=== PATIENT | male | born 1940 | race Two or more races ===

== ENCOUNTER 2022-12-09 07:01 | Inpatient (IN) | payer OTHER ==
[2022-12-09] MEDS ORDERED: ACETAMINOPHEN 1000 MG/100 ML BAG IVPB ONE ×2 (08:02→15:39)
[2022-12-09 08:09] VITALS: BMI 21.6
[2022-12-09 11:26] LABS: BASO % 0.4 % (0-2.0); EOS % 0.4 % (0-4.5); HEMATOCRIT 27.1 % (35.4-49); HEMOGLOBIN 8.8 GM/dL (11.7-16.9); LYMPH % 6.4 % (8-40); MCH 28.8 pg (25.7-33.7); MCHC 32.3 g/dl (32.0-35.9); MEAN PLT VOLUME 11.3 fl (7.5-11.1); MONO % 10.7 % (3.8-10.2); NEUT % 82.1 % (42.8-82.8); PLATELET COUNT 119 10^3/uL (134-434); RBC 3.04 M/mm3 (4.00-5.60); RDW 17.1 % (11.9-15.9); WHITE BLOOD COUNT 4.4 K/mm3 (4.0-10.0)
[2022-12-09 11:29] LABS: CALCIUM 9.2 mg/dL (8.5-10.1)
[2022-12-09 11:30] LABS: ALBUMIN 3.5 g/dl (3.4-5.0); BLOOD UREA NITROGEN 97.3 mg/dL (7-18)
[2022-12-09 11:33] LABS: CREATININE 3.3 mg/dL (0.55-1.3)
[2022-12-09 11:34] LABS: BILIRUBIN,TOTAL 0.7 mg/dL (0.2-1)
[2022-12-09 11:47] LABS: INR 1.24 (0.83-1.09); PROTHROMBIN TIME (PATIENT) 14.3 SEC (9.7-13.0)
[2022-12-09 11:50] LABS: ACTIVATED PTT 33.4 SECONDS (25.2-36.5)
[2022-12-09] MEDS: SEVELAMER CARBONATE 800 MG TAB (FP) PO SCH (17:18)
[2022-12-09] MEDS: oxyCODONE HCL 5 MG TABLET PO PRN (17:19)
[2022-12-09] MEDS: INSULIN SLIDING SCALE (NOVOLOG) 1 VIAL SQ SCH ×2 (17:27→21:18)
[2022-12-09] MEDS ORDERED: INSULIN (NOVOLOG) ASPART 100 UNITS/ML 10ML VIAL ONE (20:11)
[2022-12-09] MEDS: ISOSORBIDE DINITRATE 10 MG TABLET PO SCH (20:13)
[2022-12-09 20:21] LABS: INR 1.24 (0.83-1.09); PROTHROMBIN TIME (PATIENT) 14.4 SEC (9.7-13.0)
[2022-12-09 20:24] LABS: ACTIVATED PTT 34.8 SECONDS (25.2-36.5)
[2022-12-09] MEDS: ATORVASTATIN CA 10 MG TABLET (FP) PO SCH (21:15)
[2022-12-09] MEDS: METOPROLOL TARTRATE 25 MG TABLET (FP) PO SCH (21:16)
[2022-12-09] MEDS: INSULIN (LEVEMIR) 100 UNITS/ML UNITS SQ SCH (21:18)
[2022-12-10] MEDS: INSULIN SLIDING SCALE (NOVOLOG) 1 VIAL SQ SCH ×4 (06:10→22:18)
[2022-12-10] MEDS: INSULIN (LEVEMIR) 100 UNITS/ML UNITS SQ SCH (06:10)
[2022-12-10] MEDS ORDERED: DEXTROSE 50%-WATER 25 GM/50 ML DISP.SYRIN IVPUSH ONE (06:16)
[2022-12-10] MEDS ORDERED: DEXTROSE 50%-WATER 25 GM/50 ML DISP.SYRIN ONE (06:20)
[2022-12-10] MEDS: SEVELAMER CARBONATE 800 MG TAB (FP) PO SCH ×3 (09:39→16:49)
[2022-12-10] MEDS: TAMSULOSIN HCL 0.4 MG CAP PO SCH (09:39)
[2022-12-10 09:40] LABS: BASO % 0.2 % (0-2.0); EOS % 0.4 % (0-4.5); HEMATOCRIT 23.7 % (35.4-49); HEMOGLOBIN 7.8 GM/dL (11.7-16.9); LYMPH % 9.1 % (8-40); MCH 28.5 pg (25.7-33.7); MEAN CELL VOLUME 86.6 fl (80-96); MEAN PLT VOLUME 10.3 fl (7.5-11.1); MONO % 13.2 % (3.8-10.2); NEUT % 77.1 % (42.8-82.8); PLATELET COUNT 92 10^3/uL (134-434); RBC 2.74 M/mm3 (4.00-5.60); RDW 16.5 % (11.9-15.9); WHITE BLOOD COUNT 3.8 K/mm3 (4.0-10.0)
[2022-12-10] MEDS: METOPROLOL TARTRATE 25 MG TABLET (FP) PO SCH ×2 (09:42→21:56)
[2022-12-10] MEDS: ISOSORBIDE DINITRATE 10 MG TABLET PO SCH ×2 (09:42→17:49)
[2022-12-10] MEDS: PANTOPRAZOLE 40 MG TABLET PO SCH (09:47)
[2022-12-10] MEDS: TORSEMIDE 20 MG TABLET (FP) PO SCH (09:59)
[2022-12-10 10:12] LABS: ALBUMIN 3.2 g/dl (3.4-5.0); BLOOD UREA NITROGEN 91.7 mg/dL (7-18)
[2022-12-10 10:13] LABS: CALCIUM 9.1 mg/dL (8.5-10.1); MAGNESIUM 2.4 mg/dL (1.8-2.4)
[2022-12-10 10:14] LABS: BILIRUBIN,TOTAL 0.7 mg/dL (0.2-1); TOT PROT 6.5 g/dl (6.4-8.2)
[2022-12-10 10:16] LABS: PHOSPHOROUS 4.4 mg/dL (2.5-4.9)
[2022-12-10] MEDS: oxyCODONE HCL 5 MG TABLET PO PRN (10:18)
[2022-12-10] MEDS ORDERED: ENOXAPARIN NA (PORCINE) 40 MG/0.4 ML DISP.SYRIN SQ SCH (12:45)
[2022-12-10] MEDS: ACETAMINOPHEN 1000 MG/100 ML BAG IVPB SCH ×2 (13:11→21:52)
[2022-12-10] MEDS: ASPIRIN COATED 81 MG TABLET.EC PO SCH (14:00)
[2022-12-10] MEDS ORDERED: INSULIN (NOVOLOG) ASPART 100 UNITS/ML 10ML VIAL ONE ×2 (16:49→22:17)
[2022-12-10] MEDS: HEPARIN NA (PORCINE) 5,000 UNITS/ML 1ML VIAL SQ SCH (21:53)
[2022-12-10] MEDS: ATORVASTATIN CA 10 MG TABLET (FP) PO SCH (21:54)
[2022-12-11] MEDS: ACETAMINOPHEN 1000 MG/100 ML BAG IVPB SCH ×2 (04:49→05:41)
[2022-12-11] MEDS: INSULIN (LEVEMIR) 100 UNITS/ML UNITS SQ SCH (06:40)
[2022-12-11] MEDS: INSULIN SLIDING SCALE (NOVOLOG) 1 VIAL SQ SCH ×4 (06:43→23:20)
[2022-12-11] MEDS: ISOSORBIDE DINITRATE 10 MG TABLET PO SCH ×3 (09:40→18:12)
[2022-12-11] MEDS: PANTOPRAZOLE 40 MG TABLET PO SCH (09:41)
[2022-12-11] MEDS: TAMSULOSIN HCL 0.4 MG CAP PO SCH (09:41)
[2022-12-11] MEDS: TORSEMIDE 20 MG TABLET (FP) PO SCH (09:41)
[2022-12-11] MEDS: SEVELAMER CARBONATE 800 MG TAB (FP) PO SCH ×3 (09:41→18:12)
[2022-12-11] MEDS: ASPIRIN COATED 81 MG TABLET.EC PO SCH (09:41)
[2022-12-11] MEDS: HEPARIN NA (PORCINE) 5,000 UNITS/ML 1ML VIAL SQ SCH ×2 (09:41→23:20)
[2022-12-11] MEDS: METOPROLOL TARTRATE 25 MG TABLET (FP) PO SCH ×3 (09:41→23:24)
[2022-12-11 13:01] LABS: HEMATOCRIT 26.2 % (35.4-49); HEMOGLOBIN 8.4 GM/dL (11.7-16.9); MCH 27.8 pg (25.7-33.7); MCHC 32.2 g/dl (32.0-35.9); MEAN CELL VOLUME 86.4 fl (80-96); MEAN PLT VOLUME 10.9 fl (7.5-11.1); PLATELET COUNT 77 10^3/uL (134-434); RBC 3.04 M/mm3 (4.00-5.60); RDW 16.3 % (11.9-15.9); WHITE BLOOD COUNT 3.4 K/mm3 (4.0-10.0)
[2022-12-11 13:15] LABS: CALCIUM 8.6 mg/dL (8.5-10.1)
[2022-12-11 13:16] LABS: ALBUMIN 2.8 g/dl (3.4-5.0); BLOOD UREA NITROGEN 88.6 mg/dL (7-18); MAGNESIUM 2.3 mg/dL (1.8-2.4)
[2022-12-11 13:19] LABS: CREATININE 3.2 mg/dL (0.55-1.3); PHOSPHOROUS 4.3 mg/dL (2.5-4.9)
[2022-12-11 13:20] LABS: BILIRUBIN,TOTAL 0.8 mg/dL (0.2-1)
[2022-12-11] MEDS ORDERED: INSULIN (NOVOLOG) ASPART 100 UNITS/ML 10ML VIAL ONE (22:37)
[2022-12-11] MEDS: ATORVASTATIN CA 10 MG TABLET (FP) PO SCH (23:18)
[2022-12-11] MEDS: oxyCODONE HCL 5 MG TABLET PO PRN (23:22)
[2022-12-12] MEDS: INSULIN (LEVEMIR) 100 UNITS/ML UNITS SQ SCH (06:24)
[2022-12-12] MEDS: INSULIN SLIDING SCALE (NOVOLOG) 1 VIAL SQ SCH ×4 (06:25→23:15)
[2022-12-12] MEDS: SEVELAMER CARBONATE 800 MG TAB (FP) PO SCH ×4 (09:01→18:00)
[2022-12-12] MEDS: TAMSULOSIN HCL 0.4 MG CAP PO SCH (09:01)
[2022-12-12] MEDS: ASPIRIN COATED 81 MG TABLET.EC PO SCH (09:01)
[2022-12-12] MEDS: PANTOPRAZOLE 40 MG TABLET PO SCH (09:02)
[2022-12-12] MEDS: ISOSORBIDE DINITRATE 10 MG TABLET PO SCH ×2 (09:03→17:44)
[2022-12-12] MEDS: METOPROLOL TARTRATE 25 MG TABLET (FP) PO SCH ×2 (09:03→23:06)
[2022-12-12] MEDS: TORSEMIDE 20 MG TABLET (FP) PO SCH (09:04)
[2022-12-12] MEDS: oxyCODONE HCL 5 MG TABLET PO PRN (09:06)
[2022-12-12 09:11] LABS: HEMATOCRIT 23.7 % (35.4-49); HEMOGLOBIN 7.8 GM/dL (11.7-16.9); MCH 28.2 pg (25.7-33.7); MCHC 32.7 g/dl (32.0-35.9); MEAN CELL VOLUME 86.2 fl (80-96); MEAN PLT VOLUME 10.6 fl (7.5-11.1); PLATELET COUNT 79 10^3/uL (134-434); RBC 2.75 M/mm3 (4.00-5.60); RDW 16.8 % (11.9-15.9); WHITE BLOOD COUNT 4.3 K/mm3 (4.0-10.0)
[2022-12-12 09:44] LABS: CALCIUM 8.5 mg/dL (8.5-10.1)
[2022-12-12 09:45] LABS: ALBUMIN 2.6 g/dl (3.4-5.0); MAGNESIUM 2.3 mg/dL (1.8-2.4)
[2022-12-12 09:48] LABS: CREATININE 3.1 mg/dL (0.55-1.3); PHOSPHOROUS 3.8 mg/dL (2.5-4.9)
[2022-12-12 09:49] LABS: BILIRUBIN,TOTAL 1.3 mg/dL (0.2-1); TOT PROT 5.9 g/dl (6.4-8.2)
[2022-12-12] MEDS ORDERED: PROPOFOL 40 ML ONE (12:13)
[2022-12-12] MEDS ORDERED: MIDAZOLAM HCL 2 MG/2 ML SINGLE DOSE VIAL ONE (12:13)
[2022-12-12] MEDS ORDERED: ceFAZolin SODIUM 1 GM VIAL ONE ×2 (12:13→12:18)
[2022-12-12] MEDS ORDERED: SODIUM CHLORIDE 0.9% P/F 10 ML VIAL IJ ONE (12:13)
[2022-12-12] MEDS ORDERED: BUPIVACAINE HCL/PF 0.5% (5MG/ML) 10 ML VIAL ONE (12:39)
[2022-12-12] MEDS ORDERED: ceFAZolin SODIUM 1 GM VIAL IVPB ONE (12:57)
[2022-12-12] MEDS ORDERED: LACTATED RINGERS SOLUTION 1,000 ML IV SCH ×2 (14:45→15:24)
[2022-12-12] MEDS ORDERED: ACETAMINOPHEN 1000 MG/100 ML BAG IVPB PRN (17:07)
[2022-12-12] MEDS: LACTATED RINGERS SOLUTION 1,000 ML IV SCH (17:46)
[2022-12-12] MEDS ORDERED: CEFAZOLIN SODIUM 2 GM in DEXTROSE 5%-WATER 100 ML IVPB SCH (21:00)
[2022-12-12] MEDS: CEFAZOLIN SODIUM 2 GM in DEXTROSE 5%-WATER 100 ML IVPB SCH (23:05)
[2022-12-12] MEDS: ATORVASTATIN CA 10 MG TABLET (FP) PO SCH (23:06)
[2022-12-13] MEDS: CEFAZOLIN SODIUM 2 GM in DEXTROSE 5%-WATER 100 ML IVPB SCH (04:40)
[2022-12-13] MEDS: INSULIN (LEVEMIR) 100 UNITS/ML UNITS SQ SCH (06:30)
[2022-12-13] MEDS: INSULIN SLIDING SCALE (NOVOLOG) 1 VIAL SQ SCH ×4 (06:35→21:46)
[2022-12-13] MEDS ORDERED: ASPIRIN 325 MG TABLET PO SCH ×2 (08:00)
[2022-12-13] MEDS: TAMSULOSIN HCL 0.4 MG CAP PO SCH (08:36)
[2022-12-13] MEDS: SEVELAMER CARBONATE 800 MG TAB (FP) PO SCH ×3 (08:36→17:04)
[2022-12-13] MEDS ORDERED: BISACODYL 10 MG SUPP.RECT PR PRN (09:37)
[2022-12-13] MEDS: METOPROLOL TARTRATE 25 MG TABLET (FP) PO SCH ×2 (09:52→21:46)
[2022-12-13] MEDS: TORSEMIDE 20 MG TABLET (FP) PO SCH (09:52)
[2022-12-13] MEDS: ISOSORBIDE DINITRATE 10 MG TABLET PO SCH ×2 (09:52→18:42)
[2022-12-13 11:04] LABS: BASO % 0.1 % (0-2.0); HEMATOCRIT 15.2 % (35.4-49); MCH 29.8 pg (25.7-33.7); MCHC 34.8 g/dl (32.0-35.9); MEAN CELL VOLUME 85.7 fl (80-96); MEAN PLT VOLUME 10.4 fl (7.5-11.1); MONO % 13.4 % (3.8-10.2); NEUT % 82.5 % (42.8-82.8); PLATELET COUNT 86 10^3/uL (134-434); RBC 1.77 M/mm3 (4.00-5.60); RDW 16.2 % (11.9-15.9); WHITE BLOOD COUNT 6.7 K/mm3 (4.0-10.0)
[2022-12-13 11:15] LABS: HEMOGLOBIN 5.3 GM/dL (11.7-16.9)
[2022-12-13 11:35] LABS: ALBUMIN 2.2 g/dl (3.4-5.0); BLOOD UREA NITROGEN 95.4 mg/dL (7-18); CALCIUM 8.3 mg/dL (8.5-10.1)
[2022-12-13 11:36] LABS: MAGNESIUM 2.1 mg/dL (1.8-2.4)
[2022-12-13 11:38] LABS: CREATININE 3.5 mg/dL (0.55-1.3)
[2022-12-13] MEDS ORDERED: INSULIN (NOVOLOG) ASPART 100 UNITS/ML 10ML VIAL ONE (11:38)
[2022-12-13 11:40] LABS: BILIRUBIN,TOTAL 0.6 mg/dL (0.2-1); TOT PROT 4.9 g/dl (6.4-8.2)
[2022-12-13] MEDS: PANTOPRAZOLE 40 MG TABLET PO SCH (11:53)
[2022-12-13 12:44] LABS: INR 1.4 (0.83-1.09); PROTHROMBIN TIME (PATIENT) 16.2 SEC (9.7-13.0)
[2022-12-13] MEDS: LACTATED RINGERS SOLUTION 1,000 ML IV SCH (17:04)
[2022-12-13] MEDS: ATORVASTATIN CA 10 MG TABLET (FP) PO SCH (21:46)
[2022-12-14 03:43] LABS: BASO % 0.1 % (0-2.0); HEMATOCRIT 21.6 % (35.4-49); HEMOGLOBIN 7.5 GM/dL (11.7-16.9); LYMPH % 7.8 % (8-40); MCH 29.2 pg (25.7-33.7); MCHC 34.6 g/dl (32.0-35.9); MEAN CELL VOLUME 84.4 fl (80-96); MEAN PLT VOLUME 9.6 fl (7.5-11.1); MONO % 15.6 % (3.8-10.2); NEUT % 76.5 % (42.8-82.8); PLATELET COUNT 63 10^3/uL (134-434); RBC 2.56 M/mm3 (4.00-5.60); RDW 15.7 % (11.9-15.9); WHITE BLOOD COUNT 4.8 K/mm3 (4.0-10.0)
[2022-12-14] MEDS: INSULIN (LEVEMIR) 100 UNITS/ML UNITS SQ SCH (06:13)
[2022-12-14] MEDS: INSULIN SLIDING SCALE (NOVOLOG) 1 VIAL SQ SCH ×4 (06:14→22:34)
[2022-12-14] MEDS: SEVELAMER CARBONATE 800 MG TAB (FP) PO SCH ×3 (08:36→17:09)
[2022-12-14] MEDS: TAMSULOSIN HCL 0.4 MG CAP PO SCH (08:36)
[2022-12-14 08:40] LABS: BASO % 0.1 % (0-2.0); HEMATOCRIT 21.2 % (35.4-49); HEMOGLOBIN 7.3 GM/dL (11.7-16.9); LYMPH % 7.5 % (8-40); MCH 28.7 pg (25.7-33.7); MCHC 34.5 g/dl (32.0-35.9); MEAN CELL VOLUME 83.1 fl (80-96); MEAN PLT VOLUME 10.1 fl (7.5-11.1); MONO % 16.6 % (3.8-10.2); NEUT % 75.8 % (42.8-82.8); PLATELET COUNT 66 10^3/uL (134-434); RBC 2.55 M/mm3 (4.00-5.60); RDW 16.1 % (11.9-15.9); WHITE BLOOD COUNT 4.6 K/mm3 (4.0-10.0)
[2022-12-14 08:52] LABS: CHLORIDE 103 mmol/L (98-107); SODIUM 134 mmol/L (136-145)
[2022-12-14 08:57] LABS: ALBUMIN 2.2 g/dl (3.4-5.0); ANION GAP 8 MMOL/L (8-16); BLOOD UREA NITROGEN 98.4 mg/dL (7-18); CALCIUM 8.5 mg/dL (8.5-10.1); CO2 23 mmol/L (21-32); GLUCOSE,RANDOM 181 mg/dL (74-106); MAGNESIUM 2.3 mg/dL (1.8-2.4)
[2022-12-14 09:00] LABS: CREATININE 3.2 mg/dL (0.55-1.3); PHOSPHOROUS 3.8 mg/dL (2.5-4.9); SGOT/AST 18 U/L (15-37); SGPT/ALT < 6 U/L (13-61)
[2022-12-14 09:02] LABS: TOT PROT 5.3 g/dl (6.4-8.2)
[2022-12-14 09:03] LABS: ALK PHOS 75 U/L (45-117)
[2022-12-14 09:29] LABS: RETICULOCYTES 2.21 % (0.5-1.5)
[2022-12-14] MEDS ORDERED: FUROSEMIDE 40 MG/4 ML INJECTABLE VIAL IVPUSH ONE (10:44)
[2022-12-14] MEDS: METOPROLOL TARTRATE 25 MG TABLET (FP) PO SCH ×2 (10:52→22:34)
[2022-12-14] MEDS: TORSEMIDE 20 MG TABLET (FP) PO SCH (10:52)
[2022-12-14] MEDS: PANTOPRAZOLE 40 MG TABLET PO SCH (10:52)
[2022-12-14] MEDS: ACETAMINOPHEN 1000 MG/100 ML BAG IVPB SCH ×2 (10:56→18:28)
[2022-12-14] MEDS: ISOSORBIDE DINITRATE 10 MG TABLET PO SCH ×2 (11:10→18:35)
[2022-12-14] MEDS ORDERED: EPOETIN ALFA-EPBX 10,000 UNIT/ML VIAL SQ ONE (15:00)
[2022-12-14] MEDS ORDERED: IRON SUCROSE INJECTION 100 MG in SODIUM CHLORIDE 95 ML IVPB ONE (15:00)
[2022-12-14] MEDS ORDERED: INSULIN (NOVOLOG) ASPART 100 UNITS/ML 10ML VIAL ONE (22:14)
[2022-12-14] MEDS: ATORVASTATIN CA 10 MG TABLET (FP) PO SCH (22:34)
[2022-12-15] MEDS: ACETAMINOPHEN 1000 MG/100 ML BAG IVPB SCH ×2 (01:59→10:08)
[2022-12-15] MEDS: INSULIN (LEVEMIR) 100 UNITS/ML UNITS SQ SCH (06:32)
[2022-12-15] MEDS: INSULIN SLIDING SCALE (NOVOLOG) 1 VIAL SQ SCH ×4 (06:32→23:08)
[2022-12-15] MEDS: oxyCODONE HCL 5 MG TABLET PO PRN ×2 (09:23→15:31)
[2022-12-15 09:30] LABS: EOS % 0.5 % (0-4.5); HEMATOCRIT 19.8 % (35.4-49); MCH 28.8 pg (25.7-33.7); MEAN CELL VOLUME 84.6 fl (80-96); MONO % 12.9 % (3.8-10.2); NEUT % 79.6 % (42.8-82.8); PLATELET COUNT 67 10^3/uL (134-434); RBC 2.34 M/mm3 (4.00-5.60); RDW 16.4 % (11.9-15.9); WHITE BLOOD COUNT 3.6 K/mm3 (4.0-10.0)
[2022-12-15 09:47] LABS: HEMOGLOBIN 6.7 GM/dL (11.7-16.9)
[2022-12-15 09:54] LABS: ALBUMIN 2.1 g/dl (3.4-5.0); BLOOD UREA NITROGEN 99.3 mg/dL (7-18); CALCIUM 8.4 mg/dL (8.5-10.1); MAGNESIUM 2.3 mg/dL (1.8-2.4)
[2022-12-15 09:58] LABS: CREATININE 3.2 mg/dL (0.55-1.3); PHOSPHOROUS 3.5 mg/dL (2.5-4.9)
[2022-12-15 09:59] LABS: BILIRUBIN,TOTAL 0.7 mg/dL (0.2-1); TOT PROT 5.2 g/dl (6.4-8.2)
[2022-12-15] MEDS: METOPROLOL TARTRATE 25 MG TABLET (FP) PO SCH ×2 (10:38→21:04)
[2022-12-15] MEDS: TORSEMIDE 20 MG TABLET (FP) PO SCH (10:38)
[2022-12-15] MEDS: ISOSORBIDE DINITRATE 10 MG TABLET PO SCH ×2 (10:38→17:25)
[2022-12-15] MEDS: SEVELAMER CARBONATE 800 MG TAB (FP) PO SCH ×3 (10:40→17:26)
[2022-12-15] MEDS: PANTOPRAZOLE 40 MG TABLET PO SCH (10:41)
[2022-12-15] MEDS: TAMSULOSIN HCL 0.4 MG CAP PO SCH (10:41)
[2022-12-15] MEDS ORDERED: FUROSEMIDE 40 MG/4 ML INJECTABLE VIAL IVPUSH ONE ×2 (10:49→15:30)
[2022-12-15] MEDS ORDERED: MAG HYDROX/AL HYDROX/SIMETH -MYLANTA- ORAL SUSPENSION PO ONE (15:21)
[2022-12-15] MEDS ORDERED: POLYETHYLENE GLYCOL (HEALTHYLAX) 3350 17 GM PACKET PO ONE (15:45)
[2022-12-15] MEDS ORDERED: IRON SUCROSE INJECTION 100 MG in SODIUM CHLORIDE 95 ML IVPB ONE (17:00)
[2022-12-15 20:11] LABS: BASO % 0.1 % (0-2.0); EOS % 0.9 % (0-4.5); HEMATOCRIT 23.6 % (35.4-49); MCH 28.8 pg (25.7-33.7); MCHC 33.7 g/dl (32.0-35.9); MEAN CELL VOLUME 85.4 fl (80-96); MEAN PLT VOLUME 10.2 fl (7.5-11.1); MONO % 12.9 % (3.8-10.2); NEUT % 80.1 % (42.8-82.8); PLATELET COUNT 70 10^3/uL (134-434); RBC 2.76 M/mm3 (4.00-5.60); RDW 15.3 % (11.9-15.9); WHITE BLOOD COUNT 3.9 K/mm3 (4.0-10.0)
[2022-12-15] MEDS: ATORVASTATIN CA 10 MG TABLET (FP) PO SCH ×2 (21:03→23:08)
[2022-12-16] MEDS: INSULIN SLIDING SCALE (NOVOLOG) 1 VIAL SQ SCH ×4 (06:30→21:25)
[2022-12-16] MEDS: INSULIN (LEVEMIR) 100 UNITS/ML UNITS SQ SCH (06:31)
[2022-12-16] MEDS: SEVELAMER CARBONATE 800 MG TAB (FP) PO SCH ×3 (08:30→17:16)
[2022-12-16] MEDS: TAMSULOSIN HCL 0.4 MG CAP PO SCH (08:30)
[2022-12-16 09:29] LABS: BASO % 0.1 % (0-2.0); EOS % 0.6 % (0-4.5); HEMATOCRIT 24.2 % (35.4-49); HEMOGLOBIN 8.2 GM/dL (11.7-16.9); LYMPH % 8.4 % (8-40); MCH 29.1 pg (25.7-33.7); MCHC 33.7 g/dl (32.0-35.9); MEAN CELL VOLUME 86.2 fl (80-96); MEAN PLT VOLUME 10.4 fl (7.5-11.1); MONO % 13.5 % (3.8-10.2); NEUT % 77.4 % (42.8-82.8); PLATELET COUNT 80 10^3/uL (134-434); RBC 2.81 M/mm3 (4.00-5.60); RDW 15.8 % (11.9-15.9); WHITE BLOOD COUNT 4.1 K/mm3 (4.0-10.0)
[2022-12-16 09:50] LABS: ALBUMIN 2.3 g/dl (3.4-5.0); BLOOD UREA NITROGEN 100.4 mg/dL (7-18); CALCIUM 8.3 mg/dL (8.5-10.1); MAGNESIUM 2.3 mg/dL (1.8-2.4)
[2022-12-16 09:54] LABS: CREATININE 3.1 mg/dL (0.55-1.3); PHOSPHOROUS 3.4 mg/dL (2.5-4.9)
[2022-12-16 09:56] LABS: TOT PROT 5.6 g/dl (6.4-8.2)
[2022-12-16] MEDS ORDERED: FUROSEMIDE 40 MG/4 ML INJECTABLE VIAL IVPUSH SCH (10:00)
[2022-12-16] MEDS: ISOSORBIDE DINITRATE 10 MG TABLET PO SCH ×2 (11:23→17:56)
[2022-12-16] MEDS: METOPROLOL TARTRATE 25 MG TABLET (FP) PO SCH ×2 (11:24→21:22)
[2022-12-16] MEDS: PANTOPRAZOLE 40 MG TABLET PO SCH (11:24)
[2022-12-16] MEDS ORDERED: FUROSEMIDE 40 MG/4 ML INJECTABLE VIAL IVPB SCH (14:00)
[2022-12-16] MEDS ORDERED: IRON SUCROSE INJECTION 100 MG in SODIUM CHLORIDE 95 ML IVPB ONE (16:11)
[2022-12-16] MEDS ORDERED: INSULIN (NOVOLOG) ASPART 100 UNITS/ML 10ML VIAL ONE ×2 (17:12→21:03)
[2022-12-16] MEDS: FUROSEMIDE 40 MG/4 ML INJECTABLE VIAL IVPB SCH (17:15)
[2022-12-16] MEDS: oxyCODONE HCL 5 MG TABLET PO PRN (21:22)
[2022-12-16] MEDS: ATORVASTATIN CA 10 MG TABLET (FP) PO SCH (21:22)
[2022-12-17] MEDS: FUROSEMIDE 40 MG/4 ML INJECTABLE VIAL IVPB SCH (06:11)
[2022-12-17] MEDS: INSULIN (LEVEMIR) 100 UNITS/ML UNITS SQ SCH (06:11)
[2022-12-17] MEDS: INSULIN SLIDING SCALE (NOVOLOG) 1 VIAL SQ SCH ×4 (06:12→22:08)
[2022-12-17] MEDS: SEVELAMER CARBONATE 800 MG TAB (FP) PO SCH ×3 (08:40→17:22)
[2022-12-17] MEDS: TAMSULOSIN HCL 0.4 MG CAP PO SCH (08:40)
[2022-12-17 10:10] LABS: BASO % 0.1 % (0-2.0); EOS % 1.2 % (0-4.5); HEMATOCRIT 24.6 % (35.4-49); HEMOGLOBIN 8.3 GM/dL (11.7-16.9); LYMPH % 7.6 % (8-40); MCH 29.5 pg (25.7-33.7); MCHC 33.8 g/dl (32.0-35.9); MEAN CELL VOLUME 87.5 fl (80-96); MEAN PLT VOLUME 9.7 fl (7.5-11.1); MONO % 13.6 % (3.8-10.2); NEUT % 77.5 % (42.8-82.8); PLATELET COUNT 91 10^3/uL (134-434); RBC 2.82 M/mm3 (4.00-5.60); RDW 15.7 % (11.9-15.9); WHITE BLOOD COUNT 3.8 K/mm3 (4.0-10.0)
[2022-12-17] MEDS: METOPROLOL TARTRATE 25 MG TABLET (FP) PO SCH ×2 (10:10→22:10)
[2022-12-17] MEDS: PANTOPRAZOLE 40 MG TABLET PO SCH (10:10)
[2022-12-17] MEDS: ISOSORBIDE DINITRATE 10 MG TABLET PO SCH ×2 (10:11→17:31)
[2022-12-17 10:31] LABS: CHLORIDE 101 mmol/L (98-107); SODIUM 132 mmol/L (136-145)
[2022-12-17 10:33] LABS: ALBUMIN 2.2 g/dl (3.4-5.0); ANION GAP 8 MMOL/L (8-16); CALCIUM 8.2 mg/dL (8.5-10.1); CO2 24 mmol/L (21-32); GLUCOSE,RANDOM 142 mg/dL (74-106); MAGNESIUM 2.2 mg/dL (1.8-2.4)
[2022-12-17 10:36] LABS: CREATININE 3.1 mg/dL (0.55-1.3); PHOSPHOROUS 3.3 mg/dL (2.5-4.9); SGOT/AST 21 U/L (15-37); SGPT/ALT 7 U/L (13-61)
[2022-12-17 10:37] LABS: ALK PHOS 147 U/L (45-117); TOT PROT 5.6 g/dl (6.4-8.2)
[2022-12-17 10:39] LABS: BILIRUBIN,TOTAL 0.9 mg/dL (0.2-1)
[2022-12-17 10:42] LABS: BLOOD UREA NITROGEN 104.6 mg/dL (7-18)
[2022-12-17] MEDS: HEPARIN NA (PORCINE) 5,000 UNITS/ML 1ML VIAL SQ SCH ×2 (14:18→22:12)
[2022-12-17] MEDS ORDERED: IRON SUCROSE INJECTION 100 MG in SODIUM CHLORIDE 95 ML IVPB ONE (17:00)
[2022-12-17] MEDS ORDERED: oxyCODONE HCL 5 MG TABLET PO PRN (21:40)
[2022-12-17] MEDS: oxyCODONE HCL 5 MG TABLET PO PRN (22:07)
[2022-12-17] MEDS: ATORVASTATIN CA 10 MG TABLET (FP) PO SCH (22:12)
[2022-12-18] MEDS ORDERED: INSULIN (NOVOLOG) ASPART 100 UNITS/ML 10ML VIAL ONE (06:13)
[2022-12-18] MEDS: INSULIN SLIDING SCALE (NOVOLOG) 1 VIAL SQ SCH ×4 (06:16→21:10)
[2022-12-18] MEDS: HEPARIN NA (PORCINE) 5,000 UNITS/ML 1ML VIAL SQ SCH ×3 (06:16→21:15)
[2022-12-18] MEDS: INSULIN (LEVEMIR) 100 UNITS/ML UNITS SQ SCH (06:26)
[2022-12-18] MEDS: SEVELAMER CARBONATE 800 MG TAB (FP) PO SCH ×3 (08:40→16:37)
[2022-12-18] MEDS: TAMSULOSIN HCL 0.4 MG CAP PO SCH (08:40)
[2022-12-18 09:27] LABS: BASO % 0.2 % (0-2.0); EOS % 1.6 % (0-4.5); HEMATOCRIT 22.4 % (35.4-49); HEMOGLOBIN 7.8 GM/dL (11.7-16.9); LYMPH % 8.3 % (8-40); MCH 30.3 pg (25.7-33.7); MCHC 34.6 g/dl (32.0-35.9); MEAN CELL VOLUME 87.6 fl (80-96); MEAN PLT VOLUME 10.1 fl (7.5-11.1); MONO % 12.7 % (3.8-10.2); NEUT % 77.2 % (42.8-82.8); PLATELET COUNT 107 10^3/uL (134-434); RBC 2.56 M/mm3 (4.00-5.60); RDW 15.7 % (11.9-15.9); WHITE BLOOD COUNT 4.2 K/mm3 (4.0-10.0)
[2022-12-18 09:33] LABS: CHLORIDE 102 mmol/L (98-107); SODIUM 134 mmol/L (136-145)
[2022-12-18 09:39] LABS: ALBUMIN 2.1 g/dl (3.4-5.0); ANION GAP 6 MMOL/L (8-16); CALCIUM 8.2 mg/dL (8.5-10.1); CO2 26 mmol/L (21-32); GLUCOSE,RANDOM 144 mg/dL (74-106); MAGNESIUM 2.4 mg/dL (1.8-2.4)
[2022-12-18 09:42] LABS: PHOSPHOROUS 2.7 mg/dL (2.5-4.9); SGOT/AST 20 U/L (15-37); SGPT/ALT < 6 U/L (13-61)
[2022-12-18 09:43] LABS: BILIRUBIN,TOTAL 1.1 mg/dL (0.2-1); TOT PROT 5.2 g/dl (6.4-8.2)
[2022-12-18 09:44] LABS: ALK PHOS 165 U/L (45-117)
[2022-12-18 09:55] LABS: BLOOD UREA NITROGEN 106.5 mg/dL (7-18)
[2022-12-18] MEDS ORDERED: FUROSEMIDE 40 MG/4 ML INJECTABLE VIAL IVPB SCH ×3 (10:00→14:51)
[2022-12-18] MEDS: PANTOPRAZOLE 40 MG TABLET PO SCH (10:43)
[2022-12-18] MEDS: METOPROLOL TARTRATE 25 MG TABLET (FP) PO SCH ×2 (10:44→21:14)
[2022-12-18] MEDS: ISOSORBIDE DINITRATE 10 MG TABLET PO SCH ×2 (10:45→17:42)
[2022-12-18] MEDS ORDERED: FUROSEMIDE 40 MG/4 ML INJECTABLE VIAL IVPB ONE (14:49)
[2022-12-18] MEDS ORDERED: oxyCODONE HCL 10 MG SUSTAINED ACTING TABLET PO ONE (14:54)
[2022-12-18] MEDS ORDERED: FUROSEMIDE INJECTION 100 MG in DEXTROSE 5%-WATER - 40 ML IVPB ONE ×2 (18:08→18:30)
[2022-12-18] MEDS: oxyCODONE HCL 5 MG TABLET PO PRN (21:11)
[2022-12-18] MEDS: ATORVASTATIN CA 10 MG TABLET (FP) PO SCH (21:24)
[2022-12-18] MEDS ORDERED: oxyCODONE HCL 10 MG SUSTAINED ACTING TABLET PO SCH (22:00)
[2022-12-19] MEDS ORDERED: FUROSEMIDE 40 MG/4 ML INJECTABLE VIAL IVPB SCH (06:00)
[2022-12-19] MEDS: INSULIN (LEVEMIR) 100 UNITS/ML UNITS SQ SCH (06:51)
[2022-12-19] MEDS: INSULIN SLIDING SCALE (NOVOLOG) 1 VIAL SQ SCH ×4 (06:52→22:05)
[2022-12-19] MEDS ORDERED: INSULIN (NOVOLOG) ASPART 100 UNITS/ML 10ML VIAL ONE ×2 (06:58→21:47)
[2022-12-19] MEDS: HEPARIN NA (PORCINE) 5,000 UNITS/ML 1ML VIAL SQ SCH ×3 (07:34→21:18)
[2022-12-19 08:36] LABS: BASO % 0.3 % (0-2.0); EOS % 1.5 % (0-4.5); HEMOGLOBIN 7.9 GM/dL (11.7-16.9); LYMPH % 11.1 % (8-40); MCH 29.7 pg (25.7-33.7); MCHC 32.9 g/dl (32.0-35.9); MEAN PLT VOLUME 9.4 fl (7.5-11.1); MONO % 11.9 % (3.8-10.2); NEUT % 75.2 % (42.8-82.8); PLATELET COUNT 113 10^3/uL (134-434); RBC 2.66 M/mm3 (4.00-5.60); RDW 16.1 % (11.9-15.9); WHITE BLOOD COUNT 3.7 K/mm3 (4.0-10.0)
[2022-12-19 08:50] LABS: CHLORIDE 101 mmol/L (98-107); SODIUM 133 mmol/L (136-145)
[2022-12-19 08:54] LABS: ALBUMIN 2.1 g/dl (3.4-5.0); ANION GAP 6 MMOL/L (8-16); CALCIUM 8.4 mg/dL (8.5-10.1); CO2 27 mmol/L (21-32); GLUCOSE,RANDOM 220 mg/dL (74-106); MAGNESIUM 2.3 mg/dL (1.8-2.4)
[2022-12-19 08:57] LABS: CREATININE 3.1 mg/dL (0.55-1.3); SGOT/AST 24 U/L (15-37)
[2022-12-19 08:58] LABS: PHOSPHOROUS 3.1 mg/dL (2.5-4.9); SGPT/ALT 6 U/L (13-61)
[2022-12-19 08:59] LABS: BILIRUBIN,TOTAL 1.2 mg/dL (0.2-1); TOT PROT 5.5 g/dl (6.4-8.2)
[2022-12-19 09:00] LABS: ALK PHOS 183 U/L (45-117)
[2022-12-19 09:09] LABS: BLOOD UREA NITROGEN 115.9 mg/dL (7-18)
[2022-12-19] MEDS: TAMSULOSIN HCL 0.4 MG CAP PO SCH (09:12)
[2022-12-19] MEDS: SEVELAMER CARBONATE 800 MG TAB (FP) PO SCH ×3 (09:12→16:58)
[2022-12-19] MEDS: ISOSORBIDE DINITRATE 10 MG TABLET PO SCH ×2 (09:12→17:41)
[2022-12-19] MEDS: PANTOPRAZOLE 40 MG TABLET PO SCH (09:13)
[2022-12-19] MEDS: METOPROLOL TARTRATE 25 MG TABLET (FP) PO SCH ×2 (09:13→21:17)
[2022-12-19] MEDS ORDERED: ACETAMINOPHEN 1000 MG/100 ML BAG IVPB PRN ×2 (09:51→15:13)
[2022-12-19] MEDS: oxyCODONE HCL 5 MG TABLET PO PRN (12:34)
[2022-12-19] MEDS: POLYETHYLENE GLYCOL (HEALTHYLAX) 3350 17 GM PACKET PO SCH ×2 (14:53→21:16)
[2022-12-19] MEDS ORDERED: IRON SUCROSE INJECTION 100 MG in SODIUM CHLORIDE 95 ML IVPB ONE (16:36)
[2022-12-19] MEDS ORDERED: EPOETIN ALFA-EPBX 20,000 UNIT/ML VIAL SQ ONE (16:36)
[2022-12-19] MEDS: SODIUM ZIRCONIUM CYCLOSILICATE (LOKELMA) 5 GM PACKET PO SCH (16:58)
[2022-12-19] MEDS: ATORVASTATIN CA 10 MG TABLET (FP) PO SCH (21:17)
[2022-12-19] MEDS: SENNOSIDES 8.6MG TABLET (FP) PO SCH (21:18)
[2022-12-20] MEDS ORDERED: INSULIN (LEVEMIR) 100 UNITS/ML UNITS SQ ONE ×3 (06:18→17:46)
[2022-12-20] MEDS: INSULIN SLIDING SCALE (NOVOLOG) 1 VIAL SQ SCH ×4 (06:40→22:11)
[2022-12-20] MEDS: INSULIN (LEVEMIR) 100 UNITS/ML UNITS SQ SCH ×2 (06:40→18:51)
[2022-12-20] MEDS: HEPARIN NA (PORCINE) 5,000 UNITS/ML 1ML VIAL SQ SCH ×3 (06:40→21:59)
[2022-12-20] MEDS: POLYETHYLENE GLYCOL (HEALTHYLAX) 3350 17 GM PACKET PO SCH ×3 (06:40→21:59)
[2022-12-20] MEDS: ISOSORBIDE DINITRATE 10 MG TABLET PO SCH ×2 (09:28→17:39)
[2022-12-20] MEDS: METOPROLOL TARTRATE 25 MG TABLET (FP) PO SCH ×2 (09:29→21:59)
[2022-12-20 10:03] LABS: BASO % 0.4 % (0-2.0); EOS % 0.8 % (0-4.5); HEMATOCRIT 23.8 % (35.4-49); HEMOGLOBIN 8.2 GM/dL (11.7-16.9); MCH 30.8 pg (25.7-33.7); MCHC 34.6 g/dl (32.0-35.9); MEAN CELL VOLUME 89.1 fl (80-96); MONO % 13.2 % (3.8-10.2); NEUT % 75.6 % (42.8-82.8); PLATELET COUNT 139 10^3/uL (134-434); RBC 2.66 M/mm3 (4.00-5.60); RDW 16.4 % (11.9-15.9); WHITE BLOOD COUNT 4.4 K/mm3 (4.0-10.0)
[2022-12-20] MEDS: SEVELAMER CARBONATE 800 MG TAB (FP) PO SCH ×3 (10:10→17:14)
[2022-12-20] MEDS: TAMSULOSIN HCL 0.4 MG CAP PO SCH (10:10)
[2022-12-20] MEDS: SODIUM ZIRCONIUM CYCLOSILICATE (LOKELMA) 5 GM PACKET PO SCH (10:10)
[2022-12-20] MEDS: PANTOPRAZOLE 40 MG TABLET PO SCH (10:11)
[2022-12-20 10:21] LABS: CHLORIDE 101 mmol/L (98-107); SODIUM 134 mmol/L (136-145)
[2022-12-20 10:25] LABS: ALBUMIN 2.2 g/dl (3.4-5.0); CALCIUM 8.4 mg/dL (8.5-10.1)
[2022-12-20 10:26] LABS: ANION GAP 6 MMOL/L (8-16); CO2 27 mmol/L (21-32); GLUCOSE,RANDOM 211 mg/dL (74-106); MAGNESIUM 2.4 mg/dL (1.8-2.4)
[2022-12-20 10:28] LABS: PHOSPHOROUS 2.3 mg/dL (2.5-4.9); SGPT/ALT 7 U/L (13-61)
[2022-12-20 10:29] LABS: CREATININE 2.9 mg/dL (0.55-1.3); SGOT/AST 24 U/L (15-37)
[2022-12-20 10:30] LABS: BILIRUBIN,TOTAL 1.2 mg/dL (0.2-1); TOT PROT 5.6 g/dl (6.4-8.2)
[2022-12-20 10:31] LABS: ALK PHOS 211 U/L (45-117)
[2022-12-20] MEDS ORDERED: BISACODYL 10 MG SUPP.RECT PR ONE (11:10)
[2022-12-20] MEDS ORDERED: IRON SUCROSE INJECTION 100 MG in SODIUM CHLORIDE 95 ML IVPB ONE (15:48)
[2022-12-20] MEDS: INSULIN (NOVOLOG) ASPART 100 UNITS/ML 10ML VIAL SQ SCH (16:53)
[2022-12-20] MEDS: SENNOSIDES 8.6MG TABLET (FP) PO SCH (21:59)
[2022-12-20] MEDS: ATORVASTATIN CA 10 MG TABLET (FP) PO SCH (21:59)
[2022-12-21] MEDS: HEPARIN NA (PORCINE) 5,000 UNITS/ML 1ML VIAL SQ SCH ×3 (05:06→21:10)
[2022-12-21] MEDS: POLYETHYLENE GLYCOL (HEALTHYLAX) 3350 17 GM PACKET PO SCH ×3 (05:06→21:10)
[2022-12-21] MEDS: INSULIN SLIDING SCALE (NOVOLOG) 1 VIAL SQ SCH ×4 (06:08→22:18)
[2022-12-21] MEDS ORDERED: INSULIN (LEVEMIR) 100 UNITS/ML UNITS SQ ONE (06:11)
[2022-12-21] MEDS: INSULIN (LEVEMIR) 100 UNITS/ML UNITS SQ SCH ×2 (07:01→18:07)
[2022-12-21] MEDS: INSULIN (NOVOLOG) ASPART 100 UNITS/ML 10ML VIAL SQ SCH ×3 (07:01→17:24)
[2022-12-21] MEDS: SEVELAMER CARBONATE 800 MG TAB (FP) PO SCH ×3 (08:13→17:29)
[2022-12-21] MEDS: TAMSULOSIN HCL 0.4 MG CAP PO SCH (08:13)
[2022-12-21 08:48] LABS: BASO % 0.1 % (0-2.0); EOS % 0.1 % (0-4.5); HEMATOCRIT 25.8 % (35.4-49); HEMOGLOBIN 8.6 GM/dL (11.7-16.9); LYMPH % 5.1 % (8-40); MCH 30.3 pg (25.7-33.7); MCHC 33.5 g/dl (32.0-35.9); MEAN CELL VOLUME 90.3 fl (80-96); MEAN PLT VOLUME 9.4 fl (7.5-11.1); MONO % 6.3 % (3.8-10.2); NEUT % 88.4 % (42.8-82.8); PLATELET COUNT 153 10^3/uL (134-434); RBC 2.85 M/mm3 (4.00-5.60); RDW 17.8 % (11.9-15.9)
[2022-12-21 09:06] LABS: CHLORIDE 106 mmol/L (98-107); SODIUM 139 mmol/L (136-145)
[2022-12-21 09:30] LABS: ALBUMIN 2.1 g/dl (3.4-5.0); ANION GAP 7 MMOL/L (8-16); CALCIUM 8.5 mg/dL (8.5-10.1); CO2 26 mmol/L (21-32); GLUCOSE,RANDOM 138 mg/dL (74-106); MAGNESIUM 2.3 mg/dL (1.8-2.4)
[2022-12-21 09:32] LABS: SGPT/ALT 6 U/L (13-61)
[2022-12-21 09:33] LABS: CREATININE 2.7 mg/dL (0.55-1.3); PHOSPHOROUS 2.4 mg/dL (2.5-4.9); SGOT/AST 17 U/L (15-37)
[2022-12-21 09:34] LABS: BILIRUBIN,TOTAL 1.4 mg/dL (0.2-1); TOT PROT 5.5 g/dl (6.4-8.2)
[2022-12-21 09:58] LABS: ALK PHOS 177 U/L (45-117); BLOOD UREA NITROGEN 117.8 mg/dL (7-18)
[2022-12-21] MEDS ORDERED: TORSEMIDE 20 MG TABLET (FP) PO ONE (10:06)
[2022-12-21] MEDS: METOPROLOL TARTRATE 25 MG TABLET (FP) PO SCH ×2 (10:13→21:10)
[2022-12-21] MEDS: PANTOPRAZOLE 40 MG TABLET PO SCH (10:13)
[2022-12-21] MEDS: ISOSORBIDE DINITRATE 10 MG TABLET PO SCH ×3 (10:14→17:29)
[2022-12-21] MEDS: SODIUM ZIRCONIUM CYCLOSILICATE (LOKELMA) 5 GM PACKET PO SCH (10:15)
[2022-12-21] MEDS: oxyCODONE HCL 5 MG TABLET PO PRN ×2 (10:17→18:06)
[2022-12-21] MEDS ORDERED: INSULIN (NOVOLOG) ASPART 100 UNITS/ML 10ML VIAL ONE (10:56)
[2022-12-21] MEDS ORDERED: FUROSEMIDE 20 MG TABLET (FP) PO ONE (13:47)
[2022-12-21] MEDS ORDERED: SODIUM ZIRCONIUM CYCLOSILICATE (LOKELMA) 5 GM PACKET PO ONE (20:00)
[2022-12-21] MEDS: ATORVASTATIN CA 10 MG TABLET (FP) PO SCH (21:10)
[2022-12-21] MEDS: SENNOSIDES 8.6MG TABLET (FP) PO SCH (21:11)
[2022-12-22] MEDS: POLYETHYLENE GLYCOL (HEALTHYLAX) 3350 17 GM PACKET PO SCH ×3 (05:04→21:09)
[2022-12-22] MEDS: HEPARIN NA (PORCINE) 5,000 UNITS/ML 1ML VIAL SQ SCH ×3 (05:04→21:08)
[2022-12-22] MEDS: INSULIN (LEVEMIR) 100 UNITS/ML UNITS SQ SCH ×2 (06:04→18:13)
[2022-12-22] MEDS: INSULIN SLIDING SCALE (NOVOLOG) 1 VIAL SQ SCH ×4 (06:04→21:10)
[2022-12-22] MEDS: INSULIN (NOVOLOG) ASPART 100 UNITS/ML 10ML VIAL SQ SCH ×3 (06:05→16:52)
[2022-12-22] MEDS: TAMSULOSIN HCL 0.4 MG CAP PO SCH (08:39)
[2022-12-22] MEDS: SEVELAMER CARBONATE 800 MG TAB (FP) PO SCH ×3 (08:39→17:22)
[2022-12-22 09:25] LABS: BASO % 0.1 % (0-2.0); EOS % 0.1 % (0-4.5); HEMATOCRIT 27.1 % (35.4-49); HEMOGLOBIN 8.9 GM/dL (11.7-16.9); LYMPH % 4.3 % (8-40); MCH 30.1 pg (25.7-33.7); MCHC 32.8 g/dl (32.0-35.9); MEAN CELL VOLUME 91.8 fl (80-96); MEAN PLT VOLUME 9.3 fl (7.5-11.1); MONO % 8.6 % (3.8-10.2); NEUT % 86.9 % (42.8-82.8); PLATELET COUNT 157 10^3/uL (134-434); RBC 2.95 M/mm3 (4.00-5.60); RDW 18.5 % (11.9-15.9); WHITE BLOOD COUNT 8.8 K/mm3 (4.0-10.0)
[2022-12-22] MEDS: PANTOPRAZOLE 40 MG TABLET PO SCH (09:39)
[2022-12-22] MEDS: METOPROLOL TARTRATE 25 MG TABLET (FP) PO SCH ×2 (09:39→21:09)
[2022-12-22] MEDS: TORSEMIDE 20 MG TABLET (FP) PO SCH (09:39)
[2022-12-22] MEDS: ISOSORBIDE DINITRATE 10 MG TABLET PO SCH ×2 (09:40→17:22)
[2022-12-22] MEDS: SODIUM ZIRCONIUM CYCLOSILICATE (LOKELMA) 5 GM PACKET PO SCH (09:40)
[2022-12-22 09:48] LABS: CHLORIDE 106 mmol/L (98-107); SODIUM 139 mmol/L (136-145)
[2022-12-22 10:18] LABS: ALBUMIN 2.2 g/dl (3.4-5.0); CALCIUM 8.8 mg/dL (8.5-10.1); GLUCOSE,RANDOM 192 mg/dL (74-106)
[2022-12-22 10:19] LABS: ANION GAP 9 MMOL/L (8-16); CO2 23 mmol/L (21-32); MAGNESIUM 2.4 mg/dL (1.8-2.4)
[2022-12-22 10:21] LABS: CREATININE 2.8 mg/dL (0.55-1.3); PHOSPHOROUS 2.6 mg/dL (2.5-4.9); SGOT/AST 30 U/L (15-37); SGPT/ALT 8 U/L (13-61)
[2022-12-22 10:22] LABS: BILIRUBIN,TOTAL 1.6 mg/dL (0.2-1); TOT PROT 5.8 g/dl (6.4-8.2)
[2022-12-22 10:23] LABS: ALK PHOS 165 U/L (45-117)
[2022-12-22 10:27] LABS: BLOOD UREA NITROGEN 121.3 mg/dL (7-18)
[2022-12-22] MEDS ORDERED: oxyCODONE HCL 10 MG SUSTAINED ACTING TABLET PO PRN (11:04)
[2022-12-22] MEDS ORDERED: oxyCODONE HCL 5 MG TABLET PO PRN (11:24)
[2022-12-22 13:10] LABS: BILIRUBIN,DIRECT 0.7 mg/dL (0.0-0.2)
[2022-12-22] MEDS ORDERED: INSULIN (NOVOLOG) ASPART 100 UNITS/ML 10ML VIAL SQ SCH ×3 (14:01→16:30)
[2022-12-22] MEDS: oxyCODONE HCL 5 MG TABLET PO PRN (17:22)
[2022-12-22] MEDS ORDERED: INSULIN (NOVOLOG) ASPART 100 UNITS/ML 10ML VIAL ONE (20:27)
[2022-12-22] MEDS: ATORVASTATIN CA 10 MG TABLET (FP) PO SCH (21:00)
[2022-12-22] MEDS: SENNOSIDES 8.6MG TABLET (FP) PO SCH (21:08)
[2022-12-23] MEDS: INSULIN (LEVEMIR) 100 UNITS/ML UNITS SQ SCH ×2 (06:09→18:29)
[2022-12-23] MEDS: POLYETHYLENE GLYCOL (HEALTHYLAX) 3350 17 GM PACKET PO SCH ×3 (06:09→21:11)
[2022-12-23] MEDS: HEPARIN NA (PORCINE) 5,000 UNITS/ML 1ML VIAL SQ SCH ×3 (06:09→21:11)
[2022-12-23] MEDS: INSULIN SLIDING SCALE (NOVOLOG) 1 VIAL SQ SCH ×4 (06:10→21:20)
[2022-12-23] MEDS: INSULIN (NOVOLOG) ASPART 100 UNITS/ML 10ML VIAL SQ SCH ×3 (06:11→16:55)
[2022-12-23] MEDS: TAMSULOSIN HCL 0.4 MG CAP PO SCH (08:48)
[2022-12-23] MEDS: SEVELAMER CARBONATE 800 MG TAB (FP) PO SCH ×3 (08:48→16:57)
[2022-12-23 09:06] LABS: CHLORIDE 107 mmol/L (98-107); SODIUM 141 mmol/L (136-145)
[2022-12-23 09:07] LABS: BASO % 0.3 % (0-2.0); EOS % 0.6 % (0-4.5); HEMATOCRIT 25.3 % (35.4-49); HEMOGLOBIN 8.4 GM/dL (11.7-16.9); LYMPH % 9.7 % (8-40); MCH 30.5 pg (25.7-33.7); MCHC 33.3 g/dl (32.0-35.9); MEAN CELL VOLUME 91.7 fl (80-96); MEAN PLT VOLUME 8.9 fl (7.5-11.1); MONO % 10.7 % (3.8-10.2); NEUT % 78.7 % (42.8-82.8); PLATELET COUNT 161 10^3/uL (134-434); RBC 2.76 M/mm3 (4.00-5.60); RDW 18.6 % (11.9-15.9); WHITE BLOOD COUNT 6.9 K/mm3 (4.0-10.0)
[2022-12-23 09:11] LABS: ALBUMIN 2.2 g/dl (3.4-5.0)
[2022-12-23 09:13] LABS: ANION GAP 5 MMOL/L (8-16); CO2 29 mmol/L (21-32); GLUCOSE,RANDOM 145 mg/dL (74-106)
[2022-12-23 09:14] LABS: MAGNESIUM 2.5 mg/dL (1.8-2.4)
[2022-12-23 09:15] LABS: SGPT/ALT 8 U/L (13-61)
[2022-12-23 09:16] LABS: CREATININE 2.9 mg/dL (0.55-1.3); SGOT/AST 21 U/L (15-37)
[2022-12-23 09:18] LABS: ALK PHOS 155 U/L (45-117); BILIRUBIN,TOTAL 1.3 mg/dL (0.2-1); PHOSPHOROUS 2.9 mg/dL (2.5-4.9); TOT PROT 5.8 g/dl (6.4-8.2)
[2022-12-23 09:32] LABS: BLOOD UREA NITROGEN 127.3 mg/dL (7-18)
[2022-12-23] MEDS: ISOSORBIDE DINITRATE 10 MG TABLET PO SCH ×2 (09:50→18:02)
[2022-12-23] MEDS: SODIUM ZIRCONIUM CYCLOSILICATE (LOKELMA) 5 GM PACKET PO SCH (09:50)
[2022-12-23] MEDS: PANTOPRAZOLE 40 MG TABLET PO SCH (09:51)
[2022-12-23] MEDS: TORSEMIDE 20 MG TABLET (FP) PO SCH (09:51)
[2022-12-23] MEDS: oxyCODONE HCL 5 MG TABLET PO PRN (09:52)
[2022-12-23] MEDS: METOPROLOL TARTRATE 25 MG TABLET (FP) PO SCH ×2 (09:53→21:11)
[2022-12-23] MEDS ORDERED: INSULIN (NOVOLOG) ASPART 100 UNITS/ML 10ML VIAL ONE ×2 (17:24→21:04)
[2022-12-23] MEDS: ATORVASTATIN CA 10 MG TABLET (FP) PO SCH (21:11)
[2022-12-23] MEDS: SENNOSIDES 8.6MG TABLET (FP) PO SCH (21:11)
[2022-12-24] MEDS: POLYETHYLENE GLYCOL (HEALTHYLAX) 3350 17 GM PACKET PO SCH ×3 (06:14→22:52)
[2022-12-24] MEDS: HEPARIN NA (PORCINE) 5,000 UNITS/ML 1ML VIAL SQ SCH ×3 (06:14→22:44)
[2022-12-24] MEDS: INSULIN SLIDING SCALE (NOVOLOG) 1 VIAL SQ SCH ×4 (06:15→22:53)
[2022-12-24] MEDS: INSULIN (NOVOLOG) ASPART 100 UNITS/ML 10ML VIAL SQ SCH ×3 (06:15→17:17)
[2022-12-24] MEDS: INSULIN (LEVEMIR) 100 UNITS/ML UNITS SQ SCH ×2 (06:15→22:53)
[2022-12-24] MEDS: SEVELAMER CARBONATE 800 MG TAB (FP) PO SCH ×3 (08:27→17:28)
[2022-12-24] MEDS: TAMSULOSIN HCL 0.4 MG CAP PO SCH (08:27)
[2022-12-24] MEDS: TORSEMIDE 20 MG TABLET (FP) PO SCH (10:17)
[2022-12-24] MEDS: PANTOPRAZOLE 40 MG TABLET PO SCH (10:17)
[2022-12-24] MEDS: METOPROLOL TARTRATE 25 MG TABLET (FP) PO SCH ×2 (10:18→22:52)
[2022-12-24] MEDS: SODIUM ZIRCONIUM CYCLOSILICATE (LOKELMA) 5 GM PACKET PO SCH (10:18)
[2022-12-24] MEDS: ISOSORBIDE DINITRATE 10 MG TABLET PO SCH ×2 (10:18→17:27)
[2022-12-24] MEDS ORDERED: INSULIN (NOVOLOG) ASPART 100 UNITS/ML 10ML VIAL ONE (17:20)
[2022-12-24] MEDS: SENNOSIDES 8.6MG TABLET (FP) PO SCH (22:44)
[2022-12-24] MEDS: ATORVASTATIN CA 10 MG TABLET (FP) PO SCH (22:44)
[2022-12-25] MEDS: POLYETHYLENE GLYCOL (HEALTHYLAX) 3350 17 GM PACKET PO SCH ×4 (06:24→21:43)
[2022-12-25] MEDS: HEPARIN NA (PORCINE) 5,000 UNITS/ML 1ML VIAL SQ SCH ×3 (06:24→21:44)
[2022-12-25] MEDS: INSULIN (NOVOLOG) ASPART 100 UNITS/ML 10ML VIAL SQ SCH ×3 (06:25→17:22)
[2022-12-25] MEDS: INSULIN (LEVEMIR) 100 UNITS/ML UNITS SQ SCH ×2 (06:25→18:48)
[2022-12-25] MEDS: INSULIN SLIDING SCALE (NOVOLOG) 1 VIAL SQ SCH ×4 (06:25→21:45)
[2022-12-25] MEDS: TAMSULOSIN HCL 0.4 MG CAP PO SCH (08:27)
[2022-12-25] MEDS: SEVELAMER CARBONATE 800 MG TAB (FP) PO SCH ×3 (08:27→17:25)
[2022-12-25 09:14] LABS: HEMATOCRIT 25.6 % (35.4-49); HEMOGLOBIN 8.4 GM/dL (11.7-16.9); MCH 30.2 pg (25.7-33.7); MCHC 32.7 g/dl (32.0-35.9); MEAN CELL VOLUME 92.1 fl (80-96); PLATELET COUNT 163 10^3/uL (134-434); RBC 2.78 M/mm3 (4.00-5.60); RDW 19.1 % (11.9-15.9); WHITE BLOOD COUNT 4.3 K/mm3 (4.0-10.0)
[2022-12-25 09:37] LABS: CHLORIDE 104 mmol/L (98-107); SODIUM 140 mmol/L (136-145)
[2022-12-25 09:45] LABS: CALCIUM 8.9 mg/dL (8.5-10.1)
[2022-12-25 09:46] LABS: ALBUMIN 2.1 g/dl (3.4-5.0); ANION GAP 8 MMOL/L (8-16); CO2 28 mmol/L (21-32)
[2022-12-25 09:48] LABS: GLUCOSE,RANDOM 112 mg/dL (74-106)
[2022-12-25 09:49] LABS: CREATININE 2.6 mg/dL (0.55-1.3); SGOT/AST 26 U/L (15-37); SGPT/ALT 13 U/L (13-61)
[2022-12-25 09:51] LABS: ALK PHOS 150 U/L (45-117); TOT PROT 5.4 g/dl (6.4-8.2)
[2022-12-25 09:59] LABS: BILIRUBIN,TOTAL 1.4 mg/dL (0.2-1); BLOOD UREA NITROGEN 117.8 mg/dL (7-18)
[2022-12-25] MEDS: METOPROLOL TARTRATE 25 MG TABLET (FP) PO SCH ×2 (10:45→21:48)
[2022-12-25] MEDS: TORSEMIDE 20 MG TABLET (FP) PO SCH (10:45)
[2022-12-25] MEDS: ISOSORBIDE DINITRATE 10 MG TABLET PO SCH ×2 (10:45→18:27)
[2022-12-25] MEDS: PANTOPRAZOLE 40 MG TABLET PO SCH (10:46)
[2022-12-25] MEDS: SODIUM ZIRCONIUM CYCLOSILICATE (LOKELMA) 5 GM PACKET PO SCH (12:07)
[2022-12-25] MEDS ORDERED: INSULIN (NOVOLOG) ASPART 100 UNITS/ML 10ML VIAL ONE (12:08)
[2022-12-25] MEDS: COLLAGENASE CLOSTRIDIUM HIST. 30 GRAMS TUBE TP SCH (14:54)
[2022-12-25] MEDS ORDERED: INSULIN (LEVEMIR) 100 UNITS/ML UNITS SQ ONE (18:59)
[2022-12-25] MEDS: ATORVASTATIN CA 10 MG TABLET (FP) PO SCH (21:44)
[2022-12-25] MEDS: SENNOSIDES 8.6MG TABLET (FP) PO SCH (21:48)
[2022-12-26] MEDS: HEPARIN NA (PORCINE) 5,000 UNITS/ML 1ML VIAL SQ SCH ×3 (06:42→21:07)
[2022-12-26] MEDS: POLYETHYLENE GLYCOL (HEALTHYLAX) 3350 17 GM PACKET PO SCH ×3 (06:43→21:06)
[2022-12-26] MEDS: INSULIN (LEVEMIR) 100 UNITS/ML UNITS SQ SCH ×2 (06:43→18:41)
[2022-12-26] MEDS: INSULIN (NOVOLOG) ASPART 100 UNITS/ML 10ML VIAL SQ SCH ×3 (06:47→17:09)
[2022-12-26] MEDS: INSULIN SLIDING SCALE (NOVOLOG) 1 VIAL SQ SCH ×4 (06:47→21:07)
[2022-12-26] MEDS: TAMSULOSIN HCL 0.4 MG CAP PO SCH (08:51)
[2022-12-26] MEDS: SEVELAMER CARBONATE 800 MG TAB (FP) PO SCH ×3 (08:51→17:09)
[2022-12-26] MEDS: METOPROLOL TARTRATE 25 MG TABLET (FP) PO SCH ×2 (10:04→21:07)
[2022-12-26] MEDS: ISOSORBIDE DINITRATE 10 MG TABLET PO SCH ×2 (10:04→17:10)
[2022-12-26] MEDS: PANTOPRAZOLE 40 MG TABLET PO SCH (10:05)
[2022-12-26] MEDS: TORSEMIDE 20 MG TABLET (FP) PO SCH (10:05)
[2022-12-26] MEDS: COLLAGENASE CLOSTRIDIUM HIST. 30 GRAMS TUBE TP SCH (10:08)
[2022-12-26] MEDS ORDERED: IRON SUCROSE INJECTION 100 MG in SODIUM CHLORIDE 95 ML IVPB ONE (11:15)
[2022-12-26] MEDS ORDERED: EPOETIN ALFA-EPBX 20,000 UNIT/ML VIAL SQ ONE (11:15)
[2022-12-26] MEDS ORDERED: DEXTROSE 5%-NORMAL SALINE 1,000 ML IV SCH (11:30)
[2022-12-26] MEDS: ATORVASTATIN CA 10 MG TABLET (FP) PO SCH (21:07)
[2022-12-26] MEDS: SENNOSIDES 8.6MG TABLET (FP) PO SCH (21:07)
[2022-12-27 03:17] VITALS: RESP 18
[2022-12-27] MEDS: POLYETHYLENE GLYCOL (HEALTHYLAX) 3350 17 GM PACKET PO SCH ×3 (06:18→22:02)
[2022-12-27] MEDS: HEPARIN NA (PORCINE) 5,000 UNITS/ML 1ML VIAL SQ SCH ×3 (06:18→22:02)
[2022-12-27] MEDS: INSULIN (NOVOLOG) ASPART 100 UNITS/ML 10ML VIAL SQ SCH ×3 (06:20→17:14)
[2022-12-27] MEDS: INSULIN (LEVEMIR) 100 UNITS/ML UNITS SQ SCH ×2 (06:20→18:40)
[2022-12-27] MEDS: INSULIN SLIDING SCALE (NOVOLOG) 1 VIAL SQ SCH ×4 (06:21→22:08)
[2022-12-27] MEDS ORDERED: INSULIN (LEVEMIR) 100 UNITS/ML UNITS SQ ONE (06:34)
[2022-12-27] MEDS: TAMSULOSIN HCL 0.4 MG CAP PO SCH (08:55)
[2022-12-27] MEDS: SEVELAMER CARBONATE 800 MG TAB (FP) PO SCH ×3 (08:55→17:14)
[2022-12-27] MEDS: PANTOPRAZOLE 40 MG TABLET PO SCH (10:11)
[2022-12-27] MEDS: ISOSORBIDE DINITRATE 10 MG TABLET PO SCH ×2 (10:11→17:19)
[2022-12-27] MEDS: TORSEMIDE 20 MG TABLET (FP) PO SCH (10:11)
[2022-12-27] MEDS: METOPROLOL TARTRATE 25 MG TABLET (FP) PO SCH ×2 (10:11→22:02)
[2022-12-27] MEDS: COLLAGENASE CLOSTRIDIUM HIST. 30 GRAMS TUBE TP SCH (10:12)
[2022-12-27] MEDS ORDERED: INSULIN (NOVOLOG) ASPART 100 UNITS/ML 10ML VIAL ONE (21:28)
[2022-12-27] MEDS: SENNOSIDES 8.6MG TABLET (FP) PO SCH (22:02)
[2022-12-27] MEDS: ATORVASTATIN CA 10 MG TABLET (FP) PO SCH (22:02)
[2022-12-28] MEDS: HEPARIN NA (PORCINE) 5,000 UNITS/ML 1ML VIAL SQ SCH ×2 (06:41→13:41)
[2022-12-28] MEDS: POLYETHYLENE GLYCOL (HEALTHYLAX) 3350 17 GM PACKET PO SCH (06:41)
[2022-12-28] MEDS: INSULIN (LEVEMIR) 100 UNITS/ML UNITS SQ SCH (06:42)
[2022-12-28] MEDS: INSULIN SLIDING SCALE (NOVOLOG) 1 VIAL SQ SCH ×2 (06:42→10:43)
[2022-12-28] MEDS: INSULIN (NOVOLOG) ASPART 100 UNITS/ML 10ML VIAL SQ SCH ×2 (06:42→10:40)
[2022-12-28] MEDS ORDERED: INSULIN (NOVOLOG) ASPART 100 UNITS/ML 10ML VIAL ONE ×2 (06:55→10:29)
[2022-12-28] MEDS ORDERED: INSULIN (LEVEMIR) 100 UNITS/ML UNITS SQ ONE (06:55)
[2022-12-28] MEDS: METOPROLOL TARTRATE 25 MG TABLET (FP) PO SCH (09:08)
[2022-12-28] MEDS: TORSEMIDE 20 MG TABLET (FP) PO SCH (09:08)
[2022-12-28] MEDS: PANTOPRAZOLE 40 MG TABLET PO SCH (09:08)
[2022-12-28] MEDS: TAMSULOSIN HCL 0.4 MG CAP PO SCH (09:08)
[2022-12-28] MEDS: SEVELAMER CARBONATE 800 MG TAB (FP) PO SCH ×2 (09:09→11:22)
[2022-12-28] MEDS: ISOSORBIDE DINITRATE 10 MG TABLET PO SCH (09:09)
[2022-12-28 09:36] VITALS: BP 100/56; PULSE 93; TEMP 97.8
[2022-12-28] MEDS ORDERED: ACETAMINOPHEN 325 MG TABLET (FP) PO PRN (09:42)
[2022-12-28] MEDS: COLLAGENASE CLOSTRIDIUM HIST. 30 GRAMS TUBE TP SCH (10:20)
[2022-12-28] MEDS ORDERED: FERROUS SO4 325 MG TABLET (FP) PO SCH (12:00)
== END 2022-12-28 14:33 | DRG 522 ==
LOC: JER 07:01 → JERBED 09:59 → J6S 16:41
PROVIDERS: ADMIT Internal Medicine; ATTEND Internal Medicine
PROC: 30233N1 Transfusion of Nonautologous Red Blood Cells into Peripheral Vein, Percutaneous Approach (ICD-10-PCS; 2022-12-10)
PROC: 0SRS0JA Replacement of Left Hip Joint, Femoral Surface with Synthetic Substitute, Uncemented, Open Approach (ICD-10-PCS; principal; 2022-12-12 12:30)
DX: S72.142A Displaced intertrochanteric fracture of left femur, initial encounter for closed fracture (principal); N17.9 Acute kidney failure, unspecified; D62 Acute posthemorrhagic anemia; I50.22 Chronic systolic (congestive) heart failure; W19.XXXA Unspecified fall, initial encounter; Y92.89 Other specified places as the place of occurrence of the external cause; E78.5 Hyperlipidemia, unspecified; N18.30 Chronic kidney disease, stage 3 unspecified; N50.89 Other specified disorders of the male genital organs; R33.9 Retention of urine, unspecified; E87.5 Hyperkalemia; D63.1 Anemia in chronic kidney disease; E11.65 Type 2 diabetes mellitus with hyperglycemia; D69.6 Thrombocytopenia, unspecified
CPT/HCPCS: 0241U-QW; 36415; 36430; 70450-TC; 71045-TC-FY; 71250-TC; 72125-TC; 72170-TC-FY; 73030-TC-RT-FY; 73502-TC-LT-FY; 74018-TC-FY; 76870-TC; 80048; 80053; 82248; 82550; 82728; 82962; 83036; 83540; 83550; 83735; 84100; 84132; 84443; 84466; 84484; 85025; 85027; 85045; 85610; 85730; 86850; 86900; 86901; 86922; 88305-TC; 88311-TC; 93005; 93010; 93306-TC; 93308; 94760; 97116-GP; 97162-GP; 99285-25; C1776; C9803-CS; J1644; J1756; P9058; Q5106; U0003; U0005

== ENCOUNTER 2023-02-17 12:03 | Inpatient (IN) | payer OTHER ==
[2023-02-17] MEDS ORDERED: PIPERACILLIN/TAZOB 4.5 GM 4.5 GM in DEXTROSE 5%-WATER 100 ML IVPB ONE (12:57)
[2023-02-17] MEDS ORDERED: VANCOMYCIN 1 GM in D5W (PRE-DOCKED) 1,000 MG/250 ML (RESTRICTED TO ID ONLY IVPB ONE (12:57)
[2023-02-17 13:40] LABS: VENOUS O2 SATURATION 78.7 % (70-80); VENOUS PCO2 65.8 mmHg (38-52)
[2023-02-17 13:41] LABS: VENOUS PH 7.192 (7.310-7.410)
[2023-02-17] MEDS ORDERED: ALBUTEROL SO4 2.5/IPRATROPIUM 0.5 INH SOL 3 ML VIAL.NEB. NEB ONE ×2 (13:43→14:22)
[2023-02-17 13:44] LABS: EOS % 0.1 % (0-4.5); HEMOGLOBIN 8.7 GM/dL (11.7-16.9); LYMPH % 4.9 % (8-40); MCH 29.8 pg (25.7-33.7); MCHC 30.9 g/dl (32.0-35.9); MEAN CELL VOLUME 96.3 fl (80-96); MEAN PLT VOLUME 10.6 fl (7.5-11.1); PLATELET COUNT 43 10^3/uL (134-434); RBC 2.91 M/mm3 (4.00-5.60); RDW 22.1 % (11.9-15.9); WHITE BLOOD COUNT 3.6 K/mm3 (4.0-10.0)
[2023-02-17 13:55] LABS: INR 1.59 (0.83-1.09); PROTHROMBIN TIME (PATIENT) 18.4 SEC (9.7-13.0)
[2023-02-17 13:58] LABS: ACTIVATED PTT 54.7 SECONDS (25.2-36.5)
[2023-02-17 14:07] LABS: CHLORIDE 107 mmol/L (98-107); SODIUM 137 mmol/L (136-145)
[2023-02-17 14:09] LABS: CALCIUM 9.1 mg/dL (8.5-10.1)
[2023-02-17 14:10] LABS: CO2 24 mmol/L (21-32); GLUCOSE,RANDOM 135 mg/dL (74-106)
[2023-02-17 14:13] LABS: CREATININE 3.9 mg/dL (0.55-1.3); SGOT/AST 44 U/L (15-37); SGPT/ALT 21 U/L (13-61)
[2023-02-17 14:15] LABS: BILIRUBIN,TOTAL 0.5 mg/dL (0.2-1); TOT PROT 6.6 g/dl (6.4-8.2)
[2023-02-17 14:16] LABS: ALK PHOS 212 U/L (45-117)
[2023-02-17 14:19] LABS: ANION GAP 6 MMOL/L (8-16); POTASSIUM 6.6 mmol/L (3.5-5.1)
[2023-02-17 14:20] LABS: ANISOCYTOSIS 2+; MACROCYTOSIS 0; OVALOCYTE 2+; PLATELET ESTIMATE DECREASED; TEAR DROP CELLS 1+
[2023-02-17] MEDS ORDERED: PIPERACILLIN/TAZOB 4.5 GM 4.5 GM/100 ML BAG IVPB ONE (14:22)
[2023-02-17] MEDS ORDERED: VANCOMYCIN/WATER FOR INJ (PEG) 1,000 MG/200 ML BAG IVPB ONE (14:22)
[2023-02-17] MEDS ORDERED: NOREPINEPHRINE BITARTRATE/D5W 8 MG/250 ML BAG IVPB ONE (14:23)
[2023-02-17] MEDS: NOREPINEPHRINE BITARTRATE/D5W 8 MG/250 ML BAG IVPB SCH (14:30)
[2023-02-17] MEDS ORDERED: FUROSEMIDE 40 MG/4 ML INJECTABLE VIAL IVPUSH ONE ×2 (14:38→21:00)
[2023-02-17] MEDS ORDERED: FUROSEMIDE 40 MG/4 ML INJECTABLE VIAL ONE (15:47)
[2023-02-17] MEDS ORDERED: VANCOMYCIN/WATER 1250 MG 1,250 MG/250 ML BAG IVPB SCH (18:45)
[2023-02-17 19:25] LABS: VENOUS BASE EXCESS -4.7 mmol/L (-2-2); VENOUS O2 SATURATION 87.3 % (70-80); VENOUS PCO2 53.4 mmHg (38-52); VENOUS PH 7.244 (7.310-7.410)
[2023-02-17 19:32] LABS: URINE APPEARANCE TURBID; URINE COLOR RED
[2023-02-17 19:52] LABS: URINE BILIRUBIN NEGATIVE (NEGATIVE); URINE GLUCOSE (UA) TRACE (NEGATIVE); URINE KETONE NEGATIVE (NEGATIVE); URINE UROBILINOGEN 0.2 mg/dL (0.2-1.0)
[2023-02-17 19:55] LABS: CHLORIDE 106 mmol/L (98-107); SODIUM 138 mmol/L (136-145)
[2023-02-17 19:57] LABS: CALCIUM 8.8 mg/dL (8.5-10.1)
[2023-02-17 19:58] LABS: ALBUMIN 1.8 g/dl (3.4-5.0); CO2 24 mmol/L (21-32); GLUCOSE,RANDOM 176 mg/dL (74-106); MAGNESIUM 2.2 mg/dL (1.8-2.4)
[2023-02-17 20:01] LABS: CREATININE 3.9 mg/dL (0.55-1.3); PHOSPHOROUS 4.2 mg/dL (2.5-4.9); SGOT/AST 16 U/L (15-37); SGPT/ALT 12 U/L (13-61)
[2023-02-17 20:03] LABS: BILIRUBIN,TOTAL 0.5 mg/dL (0.2-1); TOT PROT 5.7 g/dl (6.4-8.2)
[2023-02-17 20:04] LABS: ALK PHOS 182 U/L (45-117)
[2023-02-17 20:06] LABS: LACTIC ACID 2.1 mmol/L (0.4-2.0); N-TERMINAL BNP 33401.1 pg/ml (5-450)
[2023-02-17 20:07] LABS: URINE RBC >200 /hpf (0-4)
[2023-02-17 20:08] LABS: URINE BACTERIA FEW /hpf (NEGATIVE)
[2023-02-17 20:12] LABS: ANION GAP 7 MMOL/L (8-16); BLOOD UREA NITROGEN 117.2 mg/dL (7-18); POTASSIUM 6.1 mmol/L (3.5-5.1)
[2023-02-17] MEDS ORDERED: CALCIUM GLUCONATE 10% - 1,000 MG/10 ML VIAL IVPB ONE (20:34)
[2023-02-17] MEDS ORDERED: ALBUTEROL SO4 0.083% IH SOL 2.5 MG/3 ML VIAL.NEB. NEB ONE (20:35)
[2023-02-17] MEDS ORDERED: INSULIN REGULAR HUMAN 100 UNITS/ML *VIAL IVPUSH ONE (20:35)
[2023-02-17] MEDS ORDERED: DEXTROSE 50%-WATER 25 GM/50 ML DISP.SYRIN IVPUSH ONE (20:36)
[2023-02-17 20:43] LABS: ARTERIAL BLD GAS O2 SATURATION 98.2 % (95-98); ARTERIAL BLOOD GAS BASE EXCESS -4.4 mmol/L (-2-2); ARTERIAL BLOOD GAS PO2 139.8 mmHg (80-100)
[2023-02-17] MEDS: MUPIROCIN 2% TOPICAL OINTMENT FOR DECOLONIZATION NS SCH (21:29)
[2023-02-17] MEDS: CHLORHEXIDINE GLUCONATE 4% CLEANSER FOR DECOLONIZATION TP SCH (21:29)
[2023-02-17] MEDS: INSULIN SLIDING SCALE (NOVOLOG) 1 VIAL SQ SCH (21:52)
[2023-02-17] MEDS ORDERED: HEPARIN NA (PORCINE) 5,000 UNITS/ML 1ML VIAL SQ SCH (22:00)
[2023-02-18] MEDS ORDERED: PIPERACILLIN/TAZOB 2.25 GM 2.25 GM in DEXTROSE 5%-WATER - 50 ML IVPB SCH (02:00)
[2023-02-18] MEDS: NOREPINEPHRINE BITARTRATE/D5W 8 MG/250 ML BAG IVPB SCH ×3 (04:29→23:49)
[2023-02-18] MEDS ORDERED: VASOPRESSIN 40 UNITS/100 ML BAG IV SCH (06:00)
[2023-02-18] MEDS ORDERED: DEXTROSE 50%-WATER - 25 GM/50 ML VIAL IVPUSH ONE ×2 (06:07→09:36)
[2023-02-18] MEDS: INSULIN SLIDING SCALE (NOVOLOG) 1 VIAL SQ SCH ×4 (06:09→22:32)
[2023-02-18] MEDS ORDERED: FUROSEMIDE 100 MG/10 ML INJECTABLE VIAL IVPB ONE (06:10)
[2023-02-18] MEDS ORDERED: INSULIN (NOVOLOG) ASPART 100 UNITS/ML 10ML VIAL ONE (06:15)
[2023-02-18] MEDS ORDERED: FUROSEMIDE INJECTION 100 MG in SODIUM CHLORIDE 90 ML IVPB SCH (06:15)
[2023-02-18] MEDS ORDERED: DEXTROSE 50%-WATER 25 GM/50 ML DISP.SYRIN IVPUSH ONE (06:30)
[2023-02-18] MEDS ORDERED: FUROSEMIDE INJECTION 100 MG in DEXTROSE 5%-WATER - 90 ML IVPB SCH (06:45)
[2023-02-18 07:54] LABS: BASO % 0.2 % (0-2.0); EOS % 0.1 % (0-4.5); HEMATOCRIT 26.2 % (35.4-49); HEMOGLOBIN 8.3 GM/dL (11.7-16.9); LYMPH % 2.6 % (8-40); MCHC 31.8 g/dl (32.0-35.9); MEAN CELL VOLUME 94.3 fl (80-96); MONO % 7.4 % (3.8-10.2); NEUT % 89.7 % (42.8-82.8); PLATELET COUNT 78 10^3/uL (134-434); RBC 2.78 M/mm3 (4.00-5.60); RDW 21.8 % (11.9-15.9); WHITE BLOOD COUNT 7.2 K/mm3 (4.0-10.0)
[2023-02-18 08:11] LABS: MAGNESIUM 2.2 mg/dL (1.8-2.4)
[2023-02-18 08:14] LABS: PHOSPHOROUS 4.2 mg/dL (2.5-4.9)
[2023-02-18] MEDS: ALBUMIN HUMAN 25% 100 ML VIAL IV SCH (08:58)
[2023-02-18] MEDS: FUROSEMIDE INJECTION 100 MG in SODIUM CHLORIDE 90 ML IVPB SCH ×2 (08:59→09:31)
[2023-02-18 09:22] LABS: CHLORIDE 106 mmol/L (98-107); SODIUM 137 mmol/L (136-145)
[2023-02-18 09:26] LABS: CO2 24 mmol/L (21-32); GLUCOSE,RANDOM 78 mg/dL (74-106)
[2023-02-18 09:29] LABS: ANION GAP 6 MMOL/L (8-16); BLOOD UREA NITROGEN 117.9 mg/dL (7-18); POTASSIUM 6.9 mmol/L (3.5-5.1)
[2023-02-18] MEDS: MUPIROCIN 2% TOPICAL OINTMENT FOR DECOLONIZATION NS SCH ×2 (09:30→21:16)
[2023-02-18] MEDS: PIPERACILLIN/TAZOB 2.25 GM 2.25 GM in DEXTROSE 5%-WATER - 50 ML IVPB SCH ×2 (09:31→17:44)
[2023-02-18] MEDS ORDERED: INSULIN REGULAR HUMAN 100 UNITS/ML *VIAL SQ ONE (09:36)
[2023-02-18] MEDS ORDERED: FUROSEMIDE 40 MG/4 ML INJECTABLE VIAL IVPUSH SCH (10:00)
[2023-02-18] MEDS ORDERED: DEXTROSE 50%-WATER 25 GM/50 ML DISP.SYRIN ONE (10:01)
[2023-02-18] MEDS: CHLORHEXIDINE GLUCONATE 4% CLEANSER FOR DECOLONIZATION TP SCH (21:16)
[2023-02-18 21:18] VITALS: TEMP 97.7
[2023-02-18 22:43] VITALS: BMI 28.0
[2023-02-19 00:47] VITALS: BP 98/53; PULSE 80; RESP 23
[2023-02-19] MEDS ORDERED: ZINC SULFATE 220 MG CAPSULE (FP) PO SCH (10:00)
[2023-02-19] MEDS ORDERED: VITAMIN B COMP W-C 1 EA TABLET (NEPHRO-VITE) PO SCH (10:00)
[2023-02-19] MEDS ORDERED: VANCOMYCIN/WATER 1250 MG 1,250 MG/250 ML BAG IVPB SCH (15:00)
== END 2023-02-19 00:24 | disposition expired | DRG 871 ==
LOC: JER 12:03 → JICU 17:23
PROVIDERS: ADMIT Internal Medicine Pulmonary Disease; ATTEND Internal Medicine Pulmonary Disease
PROC: 05HM33Z Insertion of Infusion Device into Right Internal Jugular Vein, Percutaneous Approach (ICD-10-PCS; principal; 2023-02-17)
PROC: 5A09357 Assistance with Respiratory Ventilation, Less than 24 Consecutive Hours, Continuous Positive Airway Pressure (ICD-10-PCS; 2023-02-17)
DX: A41.89 Other specified sepsis (principal); J18.9 Pneumonia, unspecified organism; L89.154 Pressure ulcer of sacral region, stage 4; J96.01 Acute respiratory failure with hypoxia; J96.02 Acute respiratory failure with hypercapnia; R65.21 Severe sepsis with septic shock; E87.29 Other acidosis; J90 Pleural effusion, not elsewhere classified; N17.9 Acute kidney failure, unspecified; D61.818 Other pancytopenia; I13.0 Hypertensive heart and chronic kidney disease with heart failure and stage 1 through stage 4 chronic kidney disease, or unspecified chronic kidney disease; I50.22 Chronic systolic (congestive) heart failure; N39.0 Urinary tract infection, site not specified; N40.0 Benign prostatic hyperplasia without lower urinary tract symptoms; E78.5 Hyperlipidemia, unspecified; E88.09 Other disorders of plasma-protein metabolism, not elsewhere classified; R68.0 Hypothermia, not associated with low environmental temperature; N18.30 Chronic kidney disease, stage 3 unspecified; E11.22 Type 2 diabetes mellitus with diabetic chronic kidney disease; D64.9 Anemia, unspecified; E87.5 Hyperkalemia; Z95.0 Presence of cardiac pacemaker; L89.620 Pressure ulcer of left heel, unstageable; B96.20 Unspecified Escherichia coli [E. coli] as the cause of diseases classified elsewhere
CPT/HCPCS: 0241U-QW; 36415; 36600; 71045-TC-FY; 80048; 80053; 81003; 82550; 82553; 82803; 82962; 83036; 83605; 83735; 83880; 84100; 84436; 84439; 84443; 84484; 85025; 85027; 85610; 85730; 86850; 86900; 86901; 87040; 87076; 87086; 87186; 93005; 93010; 94660; 99285-25; J3490